=== PATIENT | female | born 1995 | race Caucasian/White ===

== ENCOUNTER 2017-10-05 20:20 | Emergency (ER) | payer BC ==
[2017-10-05 20:29] VITALS: RESP 18; TEMP 97.9
--- NOTE | 2017-10-05 21:28 | CPEKG ---
Heart Rate: 62 RR Interval: 968 P-R Interval: 120 QRSD Interval: 80 QT Interval: 436 QTC Interval: 443 P Volant: 24 QRS Volant: 36 T Wave Volant: -1 EKG Severity - BORDERLINE ECG - EKG Impression: SINUS RHYTHM EKG Impression: BORDERLINE T ABNORMALITIES, INFERIOR LEADS Electronically Signed By: Dalton Patrick 05-Oct-2017 23:02:19
--- NOTE | 2017-10-05 21:50 | EDPHY ---
General Narrative: CHIEF COMPLAINT: Asthma exacerbation HISTORY OF PRESENT ILLNESS: Patient presents with complaints of asthma exacerbation. She says she felt shortness of breath, wheezing, palpitations and painful inspiration. This started this afternoon. She was at rest doing homework. She describes it as a painful inspiration with intermittent, colicky type of chest pain. Is always worse with inspiration and movement. It is also worse with increased use of her juul electronic cigarette. No cough or flu-like symptoms. No abdominal pain. No recent travel, trauma or injury. No history of venous thrombolic event. She says she feels it is related to asthma but did not improve with her albuterol. She feels that also may be related to stress or anxiety. She also knows that it is related to her electronic cigarette use. She has an appointment upcoming for that with a heat and vent aircraft mechanic but no formal evaluation. No other associated complaints or modifying factors. REVIEW OF SYSTEMS: Ten systems reviewed and are negative unless otherwise noted in the HPI PCP: [facility] at SPECIALISTS: Pending pulmonology appointment in 2 weeks in [place] PAST MEDICAL HISTORY: Asthma PAST SURGICAL HISTORY: No recent surgeries SOCIAL HISTORY: Daily heavy electronic cigarette user. Occasional heavy alcohol use. Occasional marijuana use. [employer] student. Originally from [place] FAMILY HISTORY: Noncontributory EXAMINATION General Appearance: Alert, no distress, anxious appearing Head: normocephalic, atraumatic Eyes: Pupils equal and round, no conjunctival pallor or injection ENT, Mouth: Mucous membranes moist Neck: Normal inspection, supple, non-tender Respiratory: Lungs are clear to auscultation. No wheezing, rhonchi or crackles. No splinting or distress Cardiovascular: Regular rate and rhythm. No murmur. Symmetric radial pulses 2+ . Back: non-tender, no bony abnormalities Neurological: A&O, nonfocal, normal gait Skin: Warm and dry, no rash no petechiae or purpura Extremities: Nontender, no pedal edema. No evidence of DVT Psychiatric: Anxious Mood and affect DIFFERENTIAL DIAGNOSES: Including but not limited to asthma exacerbation, acute stress reaction, anxiety reaction, PE, pneumonia, bronchitis MDM: 9:20 p.m. Shortness of breath palpitations with normal examination and vital signs were well within normal limits. She does appear to be anxious. She also appears to have underlying abuse of nicotine and alcohol. She exhibits no evidence of DVT , alcohol withdrawal or signs or symptoms that would suggest PE. I have ordered chest x-ray and EKG. She is in no acute distress. 10:00 p.m. Chest x-ray as read by me is unremarkable. EKG is unremarkable for any acute findings. Very low clinical suspicion for anything other than stress compound by heavy nicotine and alcohol use. She is in no acute distress with normal vital signs. I do not feel she warrants any further workup at this time. She has follow-up [facility] at and with pulmonology in [place]. I will discharge her home with a short course of hydroxyzine for the possible stress component. We discussed ED precautions. She is discharged home stable condition. EKG interpretation: Dr. Patrick Sinus rhythm. 62 beats per minute. No ischemia. SUPERVISION: Patient was independently examined, but I discussed the case with my secondary supervising physician Dr. Patrick - Diagnostics Imaging Results: Imaging Impressions Chest X-Ray 10/05/17 21:20 Impression: Normal. - History Smoking Status: Current every day smoker - Objective Vital Signs: Initial Vital Signs Temperature (C) 97.9 F 10/05/17 20:25 Heart Rate 73 10/05/17 20:25 Respiratory Rate 18 10/05/17 20:25 Blood Pressure 136/96 H 10/05/17 20:25 O2 Sat (%) 98 10/05/17 20:25 O2 Delivery Mode Room Air Allergies/Adverse Reactions: amoxicillin Allergy (Verified 10/05/17 20:29) Home Medications: Medication Instructions Recorded Albuterol 10/05/17 hydrOXYzine HCL [Hydroxyzine HCl] 50 mg PO Q6-8PRN PRN #11 tab 10/05/17 Departure - Departure Disposition: Home, Routine, Self-Care Clinical Impression: Intermittent palpitations, Chest wall pain, Stress reaction Nicotine dependence Qualifiers: Nicotine product type: unspecified Substance use status: uncomplicated Qualified Code(s): F17.200 - Nicotine dependence, unspecified, uncomplicated Condition: Good Instructions: Electronic Cigarettes and Your Health (ED), Stress (ED) Additional Instructions: 1. Hydroxyzine as prescribed as needed 2. Continue previous albuterol for wheezing or asthma complaints 3. Contact [facility] at for outpatient follow-up 4. Keep your appointment with heat and vent aircraft mechanic as scheduled in 2 weeks 5. ED precautions as discussed Referrals: [facility] [Clinic] - As per Instructions Stand Alone Forms: School Excuse Prescriptions: hydrOXYzine HCL [Hydroxyzine HCl] 50 mg PO Q6-8PRN PRN #11 tab PRN Reason: Anxiety
[2017-10-05] MEDS ORDERED: hydrOXYzine HCL 50 MG TAB PO ONE (22:00)
[2017-10-05 22:11] VITALS: BP 117/64; PULSE 60; O2SAT 97
== END 2017-10-05 22:21 | disposition home or self-care (01) ==
DX: R00.2 Palpitations (principal); R07.89 Other chest pain; F43.9 Reaction to severe stress, unspecified; J45.909 Unspecified asthma, uncomplicated; F17.290 Nicotine dependence, other tobacco product, uncomplicated